=== PATIENT | male | born 1980 | race American Indian/Alaskan Native ===

== ENCOUNTER 2021-11-06 15:57 | Emergency (ER) | payer SELFPAY ==
[2021-11-06 16:29] VITALS: BP 106/69
--- NOTE | 2021-11-07 10:25 | Electrocardiograph Report ---
[facility] Test Date: 2021-11-06 Test Time: 16:42:13 Pat Name: URBANO HOPPER Department: Room: Gender: M Country Director: ALEXEI : 1980 Requested By: LENA HERRERA Order Number: [id number] Reading MD: Samson Fallon Measurements Intervals Eek Rate: 56 P: 47 NE: 139 QRS: 65 QRSD: 90 T: 14 QT: 383 QTc: 371 Interpretive Statements Sinus rhythm ST elev, probable normal early repol pattern No previous ECG available for comparison Electronically Signed On 11-07-2021 10:25:26 EDT by Samson Fallon
== END 2021-11-06 22:45 | disposition left against medical advice (07) ==
LOC: ED 15:57
DX: R07.9 Chest pain, unspecified (principal); Z53.21 Procedure and treatment not carried out due to patient leaving prior to being seen by health care provider
CPT/HCPCS: 93005